=== PATIENT | female | born 1965 ===

== ENCOUNTER 2018-09-28 06:41 | Day surgery (SDC) | payer OTHER ==
[2018-09-28] MEDS ORDERED: Lactated Ringer's 1,000 ML IV ONE (07:45)
[2018-09-28 08:01] VITALS: BMI 33.1
[2018-09-28] MEDS ORDERED: EPINEPHrine 1:1000 Nasal Sol(30mL) ONE (08:05)
[2018-09-28] MEDS ORDERED: Lidocaine 1% w Epi 1:100,000 Inj ONE (08:05)
[2018-09-28] MEDS ORDERED: Lidocaine 1% Inj (20ml) ONE (08:05)
[2018-09-28] MEDS ORDERED: Propofol 10 mg/ml Inj (20 ML) ONE ×2 (08:57→11:36)
[2018-09-28] MEDS ORDERED: Midazolam 2 MG/2 ML VIAL ONE (10:47)
[2018-09-28] MEDS ORDERED: Dexamethasone 4 mg/1 ml ONE (10:58)
[2018-09-28] MEDS ORDERED: Phenylephrine 10 mg/ml Inj ONE (11:02)
[2018-09-28] MEDS ORDERED: ePHEDrine 50 mg/ml Inj ONE (11:09)
[2018-09-28] MEDS ORDERED: MethylPREDNISolone Depo 40 mg/ml Inj ONE (11:11)
[2018-09-28] MEDS ORDERED: Bupivacaine 0.5% Inj(30mL) ONE (11:11)
[2018-09-28] MEDS ORDERED: Lidocaine/Epi 1% 1:100000 20 ML IJ ONE (11:35)
[2018-09-28] MEDS ORDERED: MethylPREDNISolone Depo 40 mg/ml Inj IM ONE (11:44)
[2018-09-28] MEDS ORDERED: Bupivacaine 0.5% 50 ML IJ ONE (11:44)
[2018-09-28] MEDS ORDERED: HYDROmorphone 0.5 mg/0.5 ml ISec IVP PRN (11:58)
--- NOTE | 2018-09-28 11:58 | PCM.SURG1 ---
Surgeon's Initial Post Op Note - Surgeon's Notes Surgeon: Karrie Talamantes MD Event Operations Manager: Attila Gilman PA-C; Dave Cee DPM Type of Anesthesia: General LMA Pre-Operative Diagnosis: Rt knee meniscus tear Operative Findings: see op report Post-Operative Diagnosis: same as pre-op dx Operation Performed: Rt knee arthroscopy, partial medial meniscectomy, synovectomy, chondroplasty, injection Specimen/Specimens Removed: none Estimated Blood Loss: EBL {In ML}: 3 Date of Surgery/Procedure: 09/28/18 Time of Surgery/Procedure: 11:30
[2018-09-28] MEDS ORDERED: Oxycodone/Acetaminophen 5/325 mg Tab PO PRN (11:59)
[2018-09-28] MEDS ORDERED: Lactated Ringer's 1,000 ML IV SCH (12:00)
[2018-09-28 13:28] VITALS: O2SAT 98
[2018-09-28 17:20] VITALS: BP 114/87; PULSE 70; RESP 18; TEMP 97.8
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
== END 2018-09-28 16:08 | disposition home or self-care (01) ==
LOC: H.OPSURG 06:41
PROVIDERS: ATTEND Orthopaedic Surgery
DX: M76.51 Patellar tendinitis, right knee (principal); M25.461 Effusion, right knee; I10 Essential (primary) hypertension; E66.9 Obesity, unspecified; F32.9 Major depressive disorder, single episode, unspecified; R73.03 Prediabetes; S83.241A Other tear of medial meniscus, current injury, right knee, initial encounter; X58.XXXA Exposure to other specified factors, initial encounter; M65.861 Other synovitis and tenosynovitis, right lower leg
CPT/HCPCS: 29876; 29880; 29884; 82948; 88304; 97161; G8978; G8979; G8980; J0690; J1030; J1100; J2001; J2250; J2370; J2405; J2704; J2765; J3010; J7030; J7120